=== PATIENT | female | born 1985 | race Caucasian/White ===

== ENCOUNTER 2018-03-10 01:30 | Inpatient (IN) | payer OTHER ==
[2018-03-10] MEDS ORDERED: SODIUM CHLORIDE 0.9% FLUSH 10 ML FLUSH IVF (02:00)
[2018-03-10] MEDS: SODIUM CHLOR 0.9% 1000 ML INJ 1,000 ML IV (02:04)
[2018-03-10 02:14] LABS: AUTOMATED NEUTROPHIL # 2.4 TH/MM3 (1.8-7.7); BASOPHIL % 0.4 % (0.0-2.0); EOSINOPHIL # 0.3 TH/MM3 (0-0.4); EOSINOPHIL % 4.9 % (0.0-4.0); HEMATOCRIT 36.1 % (35.0-46.0); HEMO FLAGS DIFF FINAL; HEMOGLOBIN 12.3 GM/DL (11.6-15.3); LYMPH % 39.7 % (9.0-44.0); MEAN CELL VOLUME 88.1 FL (80.0-100.0); MEAN PLATELET VOLUME 9.6 FL (7.0-11.0); MONO % 7.8 % (0.0-8.0); MONOCYTE # 0.4 TH/MM3 (0-0.9); NEUT % 47.2 % (16.0-70.0); PLATELET COUNT 235 TH/MM3 (150-450); RED BLOOD COUNT 4.09 MIL/MM3 (4.00-5.30); RED CELL DISTRIBUTION WIDTH 12.9 % (11.6-17.2); WHITE BLOOD COUNT 5.2 TH/MM3 (4.0-11.0)
[2018-03-10 02:15] LABS: BACTERIA, URINE RARE /hpf; BILIRUBIN, URINE NEG (NEG); BLOOD, URINE NEG (NEG); COMMENT (UR) CULT NOT INDICATED; CULTURE IF INDICATED CULT NOT INDICATED; GLUCOSE,URINE NEG (NEG); HYALINE CAST, URINE 3 /lpf (RARE); KETONE, URINE NEG (NEG); MUCUS URINE FEW /lpf (OCC); NITRITE,URINE NEG (NEG); SQUAMOUS EPITHELIAL CELL URINE 1 /hpf (0-5); URINE COLOR YELLOW (YELLW/STRAW); URINE LEUKOCYTE ESTERASE NEG (NEG)
[2018-03-10 02:21] LABS: AMPHETAMINE, URINE POS (NEG); BARBITURATES, URINE NEG (NEG); BENZODIAZEPINE,URINE POS (NEG); CANNABINOIDS, URINE NEG (NEG); COCAINE, URINE NEG (NEG)
[2018-03-10 02:28] LABS: SALICYLATES LESS THAN 1.7 MG/DL (2.8-20.0)
[2018-03-10 02:30] LABS: ALBUMIN 3.8 GM/DL (3.4-5.0); ANION GAP 7 MEQ/L (5-15); AST (GOT) 8 U/L (15-37); BICARBONATE 29.8 MEQ/L (21.0-32.0); BLOOD UREA NITROGEN 11 MG/DL (7-18); CALCIUM 8.3 MG/DL (8.5-10.1); CHLORIDE 107 MEQ/L (98-107); GLOMERULAR FILTRATION RATE 98 ML/MIN (>89); GLUCOSE,RANDOM 74 MG/DL (74-106); POTASSIUM 3.7 MEQ/L (3.5-5.1); SODIUM (NA) 144 MEQ/L (136-145)
[2018-03-10 02:33] LABS: ACETAMINOPHEN LESS THAN 2.0 MCG/ML (10.0-30.0); ALCOHOL LESS THAN 3 MG/DL (0-5); ALKALINE PHOSPHATASE 46 U/L (45-117); ALT (GPT) 15 U/L (10-53); TOTAL BILIRUBIN ADULT 0.3 MG/DL (0.2-1.0); TOTAL PROTEIN 7.2 GM/DL (6.4-8.2)
[2018-03-10] MEDS ORDERED: ACETAMINOPHEN 325 MG TAB PO (17:30)
[2018-03-10] MEDS ORDERED: MAGNESIUM HYDROXIDE SUSP 30 ML CUP PO (17:30)
[2018-03-10] MEDS ORDERED: ALUMINUM/MAGNESIUM/SIMETH 30 ML CUP PO (17:30)
[2018-03-11 07:38] LABS: ANION GAP 7 MEQ/L (5-15); BICARBONATE 26.1 MEQ/L (21.0-32.0); BLOOD UREA NITROGEN 9 MG/DL (7-18); CALCIUM 8.6 MG/DL (8.5-10.1); CHLORIDE 110 MEQ/L (98-107); GLOMERULAR FILTRATION RATE 117 ML/MIN (>89); GLUCOSE,RANDOM 82 MG/DL (74-106); POTASSIUM 3.8 MEQ/L (3.5-5.1); SODIUM (NA) 143 MEQ/L (136-145)
[2018-03-11 07:39] LABS: CHOLESTEROL 135 MG/DL (120-200)
[2018-03-11 07:49] LABS: CHOLESTEROL/ HDL RATIO 2.34 RATIO; HDL CHOLESTEROL 57.5 MG/DL (40.0-60.0); LDL CHOLESTEROL 66 MG/DL (0-99); TRIGLYCERIDES 58 MG/DL (42-150)
[2018-03-11] MEDS: MELOXICAM 7.5 MG TAB PO (09:00)
[2018-03-11] MEDS ORDERED: LORazepam 2 MG/ML VIAL IV PUSH ×4 (10:45)
[2018-03-11] MEDS ORDERED: hydrOXYzine HCL 25 MG TAB PO (10:45)
[2018-03-11] MEDS ORDERED: FLUMAZENIL 0.5 MG/5 ML VIAL IV PUSH (10:45)
[2018-03-11] MEDS ORDERED: LORazepam 1 MG TAB PO (10:45)
[2018-03-11] MEDS ORDERED: LORazepam 2 MG TAB PO (10:45)
[2018-03-11] MEDS: FLUoxetine HCL 20 MG CAP PO (11:36)
[2018-03-11 12:18] LABS: HEMOGLOBIN A1C 4.7 % (4.3-6.0); HEMOGLOBIN A1a 0.6 %; HEMOGLOBIN A1b 1.3 %; HEMOGLOBIN Ao 87.5 %; HEMOGLOBIN LA1C 1.7 %
[2018-03-11] MEDS: busPIRone HCL 5 MG TAB PO ×2 (14:00→21:12)
[2018-03-11] MEDS ORDERED: diphenhydrAMINE HCL 50 MG CAP PO (21:00)
[2018-03-12] MEDS: busPIRone HCL 5 MG TAB PO ×2 (06:35→14:00)
[2018-03-12] MEDS: MELOXICAM 7.5 MG TAB PO (08:28)
[2018-03-12] MEDS: FLUoxetine HCL 20 MG CAP PO (08:28)
== END 2018-03-12 17:15 | disposition home or self-care (01) | DRG 882 ==
LOC: NEPE 01:30 → NEDA 17:30 → H260 20:36
DX: F43.23 Adjustment disorder with mixed anxiety and depressed mood (principal); R00.1 Bradycardia, unspecified; F41.9 Anxiety disorder, unspecified; T42.4X2A Poisoning by benzodiazepines, intentional self-harm, initial encounter; G47.10 Hypersomnia, unspecified; Z91.5 Personal history of self-harm; Z81.8 Family history of other mental and behavioral disorders; Z79.899 Other long term (current) drug therapy
CPT/HCPCS: 80048; 80053; 80061; 80307; 81001; 83036; 84443; 85025; 93005; 96360; 99285-25